=== PATIENT | female | born 1940 | race Caucasian/White ===

== ENCOUNTER 2016-09-14 11:40 | Inpatient (IN) | payer MEDICARE, BC ==
[~2016-09-14] VITALS: Ht 157.5 cm; Wt 54.2 kg
--- NOTE | ~2016-09-14 | CT71 ---
[facility] A Service of [facility] RADIOLOGY TEXT RESULTS PATIENT: ARIANNA PEARSON LOCATION: [facility] 302 : 40 UNIT #: [id number] AGE: [address]: Matias Olivas MD SEX: F ORDER DR: [id number] [facility] [place] [address] [facility]. [place], [place] [address] [id number] MR#: [id number] Acc #: [id number] NAME: ARIANNA PEARSON. : 1940 SEX: F STUDY DATE/TIME: 09/14/2016 14:05 UNIT: OMKAR ROOM: STUDY DESCRIPTION: CT Head Wo Contrast Attending Physician: Saeed Horton M.D. Ordering Physician: Minh Lama M.D. Primary Care Physician: Drew Coles M.D. MEDICAL IMAGING REPORT This report is preliminary unless electronic signature is present EXAM CT head INDICATIONS Confusion. Hypertension. Agitation. Headache. TECHNIQUE CT of the head without contrast. This CT exam was performed with one or more of the following radiation dose reduction techniques: Automatic exposure control, adjustment of mA and/or kV according to patient size, and iterative reconstruction. COMPARISON None available. FINDINGS There is no acute intracranial hemorrhage, mass lesion, or acute infarct. There is some mild atrophy and chronic small vessel changes. Ventricles and basilar cisterns are normal. No extraaxial collections. No acute osseous abnormalities. IMPRESSION No acute intracranial findings. Dictated by... Darío Rodriguez M.D. THIS IS AN ELECTRONICALLY VERIFIED REPORT Darío Rodriguez M.D. at 09/15/2016 8:06 AM [facility]/roni TD: 09/14/2016 22:16 [facility] A Service [facility] RADIOLOGY TEXT RESULTS PATIENT: ARIANNA PEARSON LOCATION: [facility] 302- : 40 UNIT #: [id number] AGE: [address]: Matias Olivas MD SEX: F ORDER DR: CR #: [id number] MEDICAL IMAGING REPORT Page 1 of 1 COPY
--- NOTE | ~2016-09-14 | DS ---
Unit #: [id number] #: [id number] Patient: ARIANNA PEARSON [id number] [address] [place], [place] [address] [id number] I MR#: [id number] NAME: ARIANNA PEARSON. ROOM: 302 Age: 75 Sex: F Admission Date: 09/16/2016 : 1940 Discharge Date: 09/18/2016 Attending Physician: Jalen Ernandez M.D. Primary Care Physician: Drew Coles M.D. DISCHARGE SUMMARY PRIMARY DIAGNOSIS Toxic metabolic encephalopathy. SECONDARY DIAGNOSES 1. Urinary tract infection. 2. Dementia with behavioral disturbance and hallucinations. 3. Systemic lupus erythematosus, actively treated and in remission. 4. History of hypertension. 5. History of depression. 6. Hypothyroidism, well controlled. 7. Dyslipidemia. 8. Chronic constipation. Remote history of COPD per old records. HOSPITAL COURSE The patient was initially placed in observation status for dementia with hallucinations and inability for family to care for the patient. Consultation was made with neurology and psychiatry. The patient was started on Risperdal, low dose. Patient was pleasantly demented here and we really did have much issues with hallucinations or any sort of aggressive behavior as described by the daughter. With good control on Risperdal, we attempted to find placement for the patient. Per the daughter's initial description at admission, the patient had been declining since May although on the day of discharge the patient reports that the patient's hallucinations were much worse in the last one to two weeks. At the patient's initial presentation in the emergency room, a urinalysis was done on September 14 which was negative. The patient was on a bedside commode urinating on the when the nurse practitioner for neurology came in and the patient complained of burning with urination so a second urinalysis was obtained on the evening of the . This one came back with 2+ leukocyte esterase, negative nitrates, 0-2 red blood cells, 5-10 white blood cells, negative bacteria. This meet minimal criteria for urinary tract infection and patient was, at that time, given a diagnosis of urinary tract infection with toxic metabolic encephalopathy and started on Macrobid as she has an allergy to penicillin and cephalosporins. She will need three days of antibiotics. Urine cultures are currently negative at 48 hours for the urinalysis that was obtained on the . No further treatment or followup should be needed for this urinary tract infection. The patient's daughter has very limited understanding of her mother's dementia and hallucinations and the daughter is highly anxious that other reversible causes of the patient's mental issues are being missed. I have examined the patient thoroughly, reviewed everything that has been done to Unit #: [id number] #: [id number] Patient: ARIANNA PEARSON the patient, discussed the case with all the consultants and I have tried to reassure the daughter on multiple occasions that the patient's issues clearly appear to be from her dementia and appear to be doing very well on very mild dose Risperdal. The patient is to be discharge today to [facility] but, if for some reason there is some delay in getting the patient to [facility], it appears she could be safely discharged back home with the daughter until further placement could be obtained. DISCHARGE DISPOSITION To [facility] for her dementia with behavioral disturbance. DISCHARGE ACTIVITY Ad mariangel. She has passed physical evaluation on the day of discharge. DISCHARGE DIET Unrestricted. DISCHARGE FOLLOWUP With PCP in two to six weeks and with neurology in two to eight weeks. DISCHARGE MEDICATIONS Please see discharge Med Rec. It includes: 1. Risperdal 0.25 mg p.o. b.i.d. 2. Macrobid 100 mg p.o. b.i.d. for the next two days. There are no other new medications. Dictated by... Jalen Ernandez M.D. GRACIE/ada TD: 09/18/2016 06:06 JOB #: [id number] DISCHARGE SUMMARY Page 1 of 1 X Jalen Ernandez MD X DISCHARGE SUMMARY
--- NOTE | ~2016-09-14 | CO ---
Unit #: [id number] #: [id number] Patient: ARIANNA PEARSON [id number] [facility] [address] [place], [place] [address] [id number] I MR#: [id number] NAME: ARIANNA PEARSON. ROOM: 302 Age: 75 Sex: F Admission Date: 09/16/2016 : 1940 Attending Physician: Jalen Ernandez M.D. Primary Care Physician: Drew Coles M.D. CONSULTATION REPORT REASON FOR CONSULTATION Followup. DISCUSSION Ms. Arianna Pearson is a 75-year-old white female, seen in room 302 bed 1 on 09/17/2016 at [facility]. The patient dressed casually in hospital attire, lying comfortably in bed. Able to answer questions appropriately. The patient still having problem with confusion and problem with memory, but more coherent and able to answer questions. The patient denied any side effects from medication. Denied any other complaints. Denied any thoughts of harming self or others. Vital signs; temperature 97.7, pulse 68, respirations 18, blood pressure 157/77, oxygen saturation 99%. The patient did not show any side effects from medication. The patient started on Macrobid 100 mg b.i.d., currently on Lopressor and Risperdal 0.25 mg b.i.d., tolerating medication fairly well. REVIEW OF SYSTEMS Complete review of systems is unremarkable. MENTAL STATUS EXAMINATION Vital signs; please see above. General appearance; the patient dressed in hospital attire. Attention span and concentration, fair to poor. Speech, somewhat rambling. Oriented in place and person. Mood and affect, labile. Thought process, circumstantial. Thought content, denied any thoughts of harming self or others, but somewhat guarded, paranoia, but denied any suicidal or homicidal ideation. Recent and remote memory, poor. Language, fair. Fund of knowledge, poor. Insight and judgment, fair to slightly impaired. DIAGNOSES Psychiatric: Major neurocognitive disorder secondary to Alzheimer disease with behavioral disturbances, F02.81. ASSESSMENT AND PLAN 1. Supportive psychotherapy and psychoeducation provided to the patient, but the patient unable to comprehend much at this time. 2. Advised to continue with current combination of medication at this time. If needed, consider further adjustment of medication. The social critical care unit nurse is currently working on appropriate placement. Please feel free to call if any questions, telephone [phone]. Dictated by... Nolberto Alcala M.D. Unit #: [id number] #: [id number] Patient: ARIANNA PEARSON MI/dayanl TD: 09/17/2016 17:43 JOB #: [id number] CONSULTATION REPORT Page 1 of 1 X Nolberto Alcala MD X CONSULTATION REPORT
--- NOTE | ~2016-09-14 | CO ---
Unit #: [id number] #: [id number] Patient: ARIANNA PEARSON [id number] [address] [address] [id number] I MR#: [id number] NAME: ARIANNA PEARSON. ROOM: 302 Age: 75 Sex: F Admission Date: 09/16/2016 : 1940 Attending Physician: Jalen Ernandez M.D. Primary Care Physician: Drew Coles M.D. Consultation Date: 09/16/2016 CONSULTATION REPORT REASON FOR CONSULTATION Followup. DISCUSSION Ms. Arianna Pearson is a 75-year-old white female, seen in room 302, bed 1 on 09/16/2016. The patient dressed in hospital attire, lying comfortably in bed, seem increasingly confused. The patient needing redirection, but unable to give any coherent answer. The patient did not show any agitation. Compliant with medication. No side effects from medication. I talked to the patient's daughter in length and explained about her diagnosis and treatment. The patient's vital signs; temperature 98.1, heart rate 74, respiratory rate 16, blood pressure 150/77, oxygen saturation 99%. MENTAL STATUS EXAMINATION General appearance; the patient dressed in hospital attire, lying comfortably in bed. Attention span and concentration, poor. Speech, minimal. Orientation, unable to assess. Mood and affect, labile. Thought process, disorganized. Thought content, guarded and paranoid. Recent and remote memory, poor. Language, poor. Fund of knowledge, impaired. Insight and judgment, impaired. DIAGNOSES Psychiatric: Delirium, F05; major neurocognitive disorder secondary to Alzheimer disease with behavior disturbances, F02.81. ASSESSMENT/PLAN 1. Supportive psychotherapy and psychoeducation provided to the patient and the patient's daughter, but the patient unable to comprehend much. 2. Educated about benefits and side effects of medication and course and prognosis of illness to the patient's daughter and explained about the test. I advised to continue with current medication Risperdal 0.25 mg b.i.d. If needed, consider further adjustment of medication. We will continue to follow. Please feel free to call if any questions, telephone #[phone]. Dictated by... Nolberto Alcala M.D. [facility]/dev TD: 09/17/2016 00:57 Unit #: [id number] #: [id number] Patient: MICHELARIANNA Ignacio JOB #: [id number] CONSULTATION REPORT Page 1 of 1 X Nolberto Alcala MD X CONSULTATION REPORT
--- NOTE | ~2016-09-14 | CO ---
Unit #: [id number] #: [id number] Patient: ARIANNA PEARSON [id number] [facility] [address] [facility]. [place], [place] [address] [id number] I MR#: [id number] NAME: ARIANNA PEARSON. ROOM: 302 Age: 75 Sex: F Admission Date: 09/14/2016 : 1940 Attending Physician: Jalen Ernandez M.D. Primary Care Physician: Drew Coles M.D. CONSULTATION REPORT REASON FOR CONSULTATION Problem with memory, hallucination, agitation. HISTORY OF PRESENT ILLNESS Ms. Arianna Pearson is a 75-year-old white female, seen in room 302, bed 1 on 09/15/2016 at [facility]. The patient was admitted due to change in mental status, hallucination, advanced dementia, not able to take care of herself. The patient has a history of SLE, hypertension, hypothyroidism, depression. The patient was unable to give any reliable information, confused, guarded. No aggression. Attending to internal stimuli. Family unable to take care of her. They recommended a long-term nursing care facility. The patient seems to be attending to internal stimuli. No agitation. PAST PSYCHIATRIC HISTORY Remarkable for history of dementia and depression. No history of any inpatient treatment known at this time. The patient is currently on doxepin and Aricept. MEDICAL HISTORY History of hypertension, dementia, SLE, depression, hypothyroidism, dyslipidemia, chronic constipation, remote history of COPD. MEDICATIONS The patient is on simvastatin 40 mg daily, aspirin 81 mg daily, multivitamin 1 tablet daily, MiraLax 17 g p.r.n., Cozaar 100 mg daily, doxepin 50 mg b.i.d., Toprol 50 mg b.i.d., levothyroxine 25 mcg daily, Plaquenil 200 mg daily, Aricept 5 mg daily. FAMILY HISTORY AND SOCIAL HISTORY The patient has a good support system, but lives by herself. No history of abuse. No history of any substance abuse. REVIEW OF SYSTEMS Complete review of systems is unremarkable at this time. MENTAL STATUS EXAMINATION Vital signs; temperature 97.3, heart rate 58, respiratory rate 16, blood pressure 144/62, oxygen saturation 100%. General appearance; the patient dressed casually, lying comfortably in bed. Attention span and concentration, poor. Speech, rambling. Orientation in self. Mood and affect, labile. Thought process, circumstantial. Thought content; guarded, paranoid, attending to internal stimuli. Denied any thoughts of harming self or others. Recent and remote memory, poor. Language, fair. Unit #: [id number] #: [id number] Patient: ARIANNA PEARSON Fund of knowledge, poor. Insight and judgment, impaired. 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 Secondary diagnosis: Deferred. Medical diagnosis: Please refer to H and P. Stressors: Psychosocial stressor. ASSESSMENT/PLAN 1. Supportive psychotherapy and psychoeducation provided to the patient, but the patient unable to comprehend much. 2. Advised to continue with current medication with a plan to add Risperdal 0.25 mg b.i.d. 3. Monitor for side effects. If needed, consider further adjustment of medication. 4. We will work with the skin care instructor for appropriate placement for the patient. Please feel free to call if any questions, telephone #[phone]. Dictated by... Ariadna Bautista/dev TD: 09/16/2016 00:09 JOB #: [id number] CONSULTATION REPORT Page 1 of 1 X Nolberto Alcala MD X CONSULTATION REPORT
--- NOTE | ~2016-09-14 | EKG ---
PATIENT: ARIANNA PEARSON UNIT #: [id number] Ventricular Rate: 90 BPM Atrial Rate: 90 BPM P-R Interval: 180 ms QRS Duration: 140 ms Q-T Interval: 436 ms QTC Calculation(Bezet): 533 ms P Medina: 41 degrees Calculated R Medina: -46 degrees Calculated T Medina: 4 degrees Diagnosis Line: Normal sinus rhythm Diagnosis Line: Right bundle branch block Diagnosis Line: Left anterior fascicular block Diagnosis Line: Bifascicular block Diagnosis Line: Voltage criteria for left ventricular hypertrophy Diagnosis Line: Cannot rule out Septal infarct , age undetermined Diagnosis Line: Abnormal ECG Diagnosis Line: No previous ECGs available Diagnosis Line: Confirmed by TYREE GUTIERREZ MD ([id number]) on Diagnosis Line: 09/15/2016 12:21:06 PM INTERPRETING MD: FLY
--- NOTE | ~2016-09-14 | HP ---
Unit #: [id number] #: [id number] Patient: ARIANNA PEARSON [id number] [address] [place], [place] [address] [id number] I MR#: [id number] NAME: ARIANNA PEARSON. ROOM: 302 Age: 75 Sex: F Admission Date: 09/14/2016 : 1940 Attending Physician: Matias Olivas M.D. Primary Care Physician: Drew Coles M.D. HISTORY AND PHYSICAL CHIEF COMPLAINT Unstable mental status, hallucination, advanced dementia, not able to take care of herself at home. DISCUSSION This is a 75-year-old female with history of hypertension, dementia, SLE, depression, hypothyroid, dyslipidemia, chronic constipation, who currently lives alone at home. Her daughter is available at bedside, as per her that since May she had been declining and is more confused and not able to take care of herself. The last couple of days she has been seeing that she has been having some orange stuff on the floor and also she sees ants on the [place]zpatrick, more confused and the family brought her in the emergency room for workup and evaluation, and especially for placement. Her workup in the emergency room was so far unremarkable except the D-dimer is mildly elevated but she does not have any sign of DVT or pulmonary embolism. She was also assessed by [facility] for the admission and [facility] did not accept the patient. They recommend a long-term nursing care placement and patient being eventually admitted especially for placement and either discussed with the daughter who was available at bedside. She the patient needs to see also neurology consult and psychiatry evaluation. She is unable to give me any history. She is even not answering to my questions, just looking and not answering the question at this time. PAST MEDICAL HISTORY 1. As per old record, history of hypertension. 2. History of dementia. 3. History of SLE affecting the skin. 4. History of depression. 5. Hypothyroid. 6. Dyslipidemia. 7. Chronic constipation. 8. Remote history of COPD as per old record. PAST SURGICAL HISTORY 1. Cholecystectomy. 2. Total abdominal hysterectomy. 3. Breast biopsies. 4. Colonoscopy. 5. History of abdominal hernia repair. 6. History of bladder mesh. SOCIAL HISTORY She used to smoke one pack per day but she quit many years ago. She Unit #: [id number] #: [id number] Patient: ARIANNA PEARSON seldom used alcohol. She lives alone at this time. FAMILY HISTORY Notable for hypertension, diabetes, coronary artery in the family. ALLERGIES She is allergic to Trazodone, sulfa, ramipril, paroxetine. MEDICATION FROM HOME 1. Simvastatin 40 mg daily. 2. Aspirin 81 mg daily. 3. Multivitamin 1 tablet daily. 4. MiraLAX 17 g p.r.n. 5. Cozaar 100 mg daily. 6. Doxepin 25 mg 2 tablet b.i.d. 7. Toprol 50 mg b.i.d. 8. Levothyroxine 25 mcg daily. 9. Plaquenil 200 mg p.o. daily. 10. Aricept 5 mg at bedtime. REVIEW OF SYSTEMS Unobtainable from the patient at this time. PHYSICAL EXAMINATION GENERAL: Elderly female lying in the bed comfortable, currently not in any distress. She is alert, awake, oriented x0 at this time. VITAL SIGNS: Current vitals are following. Temp is 97.8, heart rate 96, respiratory rate 16, blood pressure 152/76, oxygen 100%. HEENT: Pupils are equal, react to light and accommodation. Head is normocephalic, atraumatic. NECK: Supple. No JVD. HEART: S1 and S2. Regular rate and rhythm. LUNGS: Clear to auscultation. Bilateral rhonchi. No wheezing. ABDOMEN: Soft, nontender, nondistended. Bowel sounds positive. EXTREMITIES: To inspection normal. No cyanosis, no clubbing, no edema. NEUROLOGIC: She is moving all extremities. DIAGNOSTIC STUDIES LABORATORY STUDIES: Laboratory workup is following today and showed no acute abnormality. D-dimer is 335, glucose 54. Chemistry - sodium 134, potassium 4, chloride 101, glucose 82, BUN 15, creatinine 1.2. LFT within normal limits. White count 6.4, hemoglobin 13, hematocrit 41, platelet 239. UA negative. IMAGING STUDIES: CT head is negative. Chest x-ray negative. ASSESSMENT AND PLAN 1. Dementia with hallucination and deliriums. Daughter requested long-term nursing care placement. Will admit the patient and ask business continuity planner to evaluate and also daughter asked me to have a neurology and psychiatry evaluation while in the hospital. Will ask psychiatry and neurology to evaluate for hallucination and delirium with advanced dementia. 2. Hypertension. 3. Mildly abnormal D-dimer. I do not see any sign or symptoms of PE and DVT. Unit #: [id number] #: [id number] Patient: ARIANNA PEARSON 4. History of SLE. 5. History of depression. 6. Hypothyroidism. 7. Dyslipidemia. 8. Chronic constipation. 9. DVT prophylaxis, will place the patient on Lovenox. Dictated by Ariadna Brock/simi TD: 09/15/2016 05:04 JOB #: [id number] HISTORY AND PHYSICAL Page 1 of 1 X X HISTORY AND PHYSICAL
--- NOTE | ~2016-09-14 | CR72 ---
[facility] A Service of [facility] RADIOLOGY TEXT RESULTS PATIENT: ARIANNA PEARSON LOCATION: [facility] 302-01 : 40 UNIT #: [id number] AGE: [address]: Matias Olivas MD SEX: F ORDER DR: [id number] [facility] [address] [facility]. [place], [place] [address] [id number] E MR#: [id number] Acc #: [id number] NAME: ARIANNA PEARSON. : 1940 SEX: F STUDY DATE/TIME: 09/14/2016 13:32 UNIT: OMKAR ROOM: STUDY DESCRIPTION: CR Chest Single View Portable Attending Physician: Saeed Horton M.D. Ordering Physician: Minh Lama M.D. Primary Care Physician: Drew Coles M.D. MEDICAL IMAGING REPORT This report is preliminary unless electronic signature is present EXAM Single view chest INDICATIONS Altered mental status. Cough and congestion. FINDINGS Single portable AP view of the chest compared to 10/13/2008. The patient is rotated to the right. Heart and mediastinal contours are unchanged when taking into account the rotation. No focal airspace opacity. No pneumothorax or pleural effusion. IMPRESSION Rotated exam, however, no acute findings are suspected. Dictated by... Darío Rodriguez M.D. THIS IS AN ELECTRONICALLY VERIFIED REPORT Darío Rodriguez M.D. at 09/15/2016 8:06 AM C/roni TD: 09/14/2016 21:49 JOB #: [id number] MEDICAL IMAGING REPORT Page 1 of 1 COPY
--- NOTE | ~2016-09-14 | CO ---
Unit #: [id number] #: [id number] Patient: ARIANNA PEARSNO [id number] [facility] [address]. [place], [place] [address] [id number] MR#: [id number] NAME: ARIANNA PEARSON. ROOM: 302 Age: 75 Sex: F Admission Date: 09/14/2016 : 1940 Attending Physician: Jalen Ernandez M.D. Primary Care Physician: Drew Coles M.D. Consultation Date: 09/15/2016 CONSULTATION REPORT PRIMARY CARE PHYSICIAN Drew Coles M.D. REASON FOR CONSULT Dementia with hallucinations. PATIENT IDENTIFICATION This is a 75-year-old, female, evaluated in room 302 at [facility]. SOURCE OF INFORMATION Obtained essentially from the medical record. The patient is a poor historian and is confused. HISTORY OF PRESENT ILLNESS This is a 75-year-old, female with a past medical history of dementia, hypertension, SLE, depression, hypothyroidism, and hyperlipidemia, who presents to [facility] with family report of worsening confusion, combativeness and agitation over the past week, but has had progressive decline since May, has become more confused and is not able to take care of herself. Her daughter brought the patient in and is requesting placement. Apparently over the last few days, she has been seeing things, having visual hallucinations, seeing ants on the fitzpatrick. She has CT of the head without contrast in the ER that was negative for any acute intracranial findings. Her workup in the ER did show an elevated D-dimer, but is otherwise unremarkable. Clinically, she is not showing any signs of DVT or PE. She was assessed by multiple places for psychiatric admission, but was not accepted and the recommendation is for long-term nursing care placement. Neurology and Psychiatry were asked to evaluate the patient further. The patient denies any current complaints with the exception of burning with urination. She actually had just finished using the restroom when I came into see her was complaining of burning and pain with using the restroom. She otherwise is confused and is unable to contribute to meaningful history. REVIEW OF SYSTEMS There are no family at the bedside. There has been no report of any headache, fever, chills, change in weight, or medications and she could not report of any stroke symptoms or seizure activity. Again, the patient is confused. PAST MEDICAL HISTORY 1. Dementia. 2. Hypertension. Unit #: [id number] #: [id number] Patient: ARIANNA PEARSON 3. SLE affecting the skin. 4. Depression. 5. Hypothyroidism. 6. Hyperlipidemia. 7. Chronic constipation. 8. COPD. 9. Cholecystectomy. 10. Total abdominal hysterectomy. 11. Breast biopsies. 12. Colonoscopy. 13. Abdominal hernia repair. 14. Bladder mesh. FAMILY HISTORY According to the medical record, positive for hypertension, diabetes and CAD, though noncontributory given her presenting condition. SOCIAL HISTORY The patient has a history of tobacco use in the past, but apparently quit many years ago per medical record. No known alcohol abuse or illicit drug use. ALLERGIES Trazodone, sulfa, ramipril, paroxetine. HOME MEDICATIONS As per med rec including Cozaar, doxepin, Toprol-XL, levothyroxine sodium, Plaquenil, simvastatin, aspirin, multivitamin, MiraLAX, simethicone, Aricept. REVIEW OF SYSTEMS Unable to obtain a full review of systems from the patient. She denies any pain other than burning with urination. PHYSICAL EXAMINATION VITAL SIGNS: Temperature 97.7, she has been afebrile, pulse 72, respirations 18, blood pressure 147/62, blood pressure in the ER on arrival was 152/76, oxygen saturation 100%, height 5 feet 2 inches, weight 118 pounds, BMI 21. NEUROLOGIC: The patient is awake. She is alert. She is oriented to person. She knows she is at the hospital, but she is unable to tell me which hospital. She is not oriented to time. She cannot tell me the day of the week, the month or the year. She has short-term memory recall impairment. She has pressured speech. She can name and identify and has no right or left confusion. She has no finger agnosia. She is not aphasic at this time. She can follow commands, but has difficulty with 2 and 3-step commands. Cranial nerve exam, she demonstrates full traylor of vision. Eyes are conjugate without ptosis or nystagmus. Extraocular movements are intact. Sensation of face and scalp is intact. Strength of the muscles of facial expression is intact. Hearing is intact to voice. Tongue is midline. Unable to fully visualize uvula and palate. Head turning is unremarkable. Shoulder shrug is unremarkable. Neck is supple. Motor exam, she demonstrates normal tone, normal strength, decreased bulk. She moves all extremities equally and spontaneously. She can ambulate in the room without difficulty and without assistance. Romberg deferred. Unit #: [id number] #: [id number] Patient: ARIANNA PEARSON M Reflexes, unable to elicit. Toes are equivocal. Coordination unremarkable. DIAGNOSTIC STUDIES IMAGING STUDIES: CT of the head without contrast on 09/14/2016; impression per Radiology report, no acute intracranial findings. EKG shows normal sinus rhythm, right bundle branch block with left anterior fascicular block. Chest x-ray on 09/14/2016; impression per Radiology report, rotated exam, however, no acute findings suspected. LABORATORY RESULTS: Initial urinalysis unremarkable. CBC unremarkable for any abnormal white cells, hemoglobin, hematocrit or abnormal platelet count. BMP unremarkable other than a sodium of 134, estimated GFR is 44.2, creatinine is 1.2, glucose was 54 a couple of hours after arrival, but on initial BMP, it was 82. TSH 0.96. IMPRESSION 1. Dementia with behavioral disturbance. 2. Complaints of pain and burning with urination. We will repeat urinalysis. 3. Hypertension. 4. Systemic lupus erythematosus. PLAN We will observe for now and we will follow closely. We will discuss with the daughter as well. I discussed the case with Dr. Acuna and he agrees to the above. We will check B12, folate, urinalysis, C and S. the family is requesting placement. Apparently, the patient does live at home and is no longer able to take care of herself. We will check for any metabolic disturbances that could be exacerbating her symptoms. Nothing at this time to suggest acute stroke, seizure or DATA PROCESSING MANAGER infection or acute primary neurologic etiology that is treatable at this time. However, if any further information is obtained, we will consider further workup. The patient is unable to contribute meaningfully to review of systems. Further recommendations to be made pending workup and further clinical course and discussion with family. We will follow along with you. We thank you very much for allowing us to assist in care of this patient. Dictated by... Inocente SantanaP.Urvashi. for Ariadna Aldana/dev TD: 09/16/2016 06:26 JOB #: [id number] CONSULTATION REPORT Page 1 of 1 X Abena Smith APRN CONSULTATION REPORT
[~2016-09-14 11:40] MED LIST: AMBIEN PO; ASPIRIN PO; ASPIRIN81 M2 PO; BACITRACIN15 GM TP; BACTRIM DS TABL1 TA1 PO; BENICAR HCT 40-1 TAB PO; BENICAR PO; CIPRO250 MG PO; COZAAR100 MG PO; DOXEPIN HCL25 MG PO; DOXEPIN PO; IRON TABLETS1 TAB PO; LEVOTHYROXINE25 MC1 PO; LOPRESSOR PO; MUPIROCIN15 GM TP; PLAQUENIL200 MG PO; PROTONIX PO; SIMVASTATIN40 MG PO; SYNTHROID PO; TOPROL XL PO; TOPROL XL50 MG PO; VICODIN 5/500 T1 TAB PO; VITAMIN D 22000 UNIT PO; ZOCOR PO
[2016-09-14 14:28] LABS: URINE SOURCE CATH
[2016-09-14 14:33] LABS: URINE APPEARANCE CLEAR; URINE BILIRUBIN NEG (NEG); URINE BLOOD NEG (NEG); URINE COLOR YELLOW; URINE GLUCOSE NEG (NEG); URINE KETONE NEG (NEG); URINE LEUKOCYTE ESTERASE NEG (NEG); URINE NITRATE NEG (NEG); URINE PROTEIN NEG (NEG); URINE UROBILINOGEN 0.2 MG/DL (NEG)
[2016-09-14 14:35] LABS: BASOPHIL% 0.2 % (0-2.5); EOSINOPHIL% 0.7 % (0.0-7.0); HEMATOCRIT 41.3 % (35.0-45.0); HEMOGLOBIN 13.5 gm/dL (12.0-16.0); LYMPHOCYTE# 0.9 X10e3 (1.0-3.5); LYMPHOCYTE% 13.8 % (17.0-45.0); MEAN CELL VOLUME 92.5 FL (83-96); MEAN CORPUSCULAR HEMOGLOBIN 30.4 PG (28-34); MEAN CORPUSCULAR HGB CONC 32.8 g/dL (30-36); MEAN PLATELET VOLUME 7.8 FL (6.5-11.5); MONOCYTE# 0.6 X10e3 (0-1.0); MONOCYTE% 9.6 % (3.0-12.0); NEUTROPHIL# 4.8 X10e3 (1.5-7.1); NEUTROPHIL% 75.7 % (40-75); PLATELET COUNT 239 X10e3 (140-420); RED BLOOD COUNT 4.46 X10e (3.90-5.30); RED CELL DISTRIBUTION WIDTH 14.2 % (11.0-15.5); WHITE BLOOD COUNT 6.4 X10e3 (4.0-10.5)
[2016-09-14 14:37] LABS: CULTURE INDICATED? NO
[2016-09-14 14:49] LABS: DIFF IND NO
[2016-09-14 15:03] LABS: ALBUMIN SERUM 4.3 g/dL (3.5-5.0); BILIRUBIN, DIRECT 0.1 mg/dL (0.0-0.2); BILIRUBIN,INDIRECT 0.8 mg/dL (0.0-0.9); BILIRUBIN,TOTAL 0.9 mg/dL (0.2-2.0); BUN/CREATININE RATIO 12.5; CALCIUM SERUM 9.6 mg/dL (8.4-10.2); CREATININE SERUM 1.2 mg/dL (0.6-1.4); GLOM FILT RATE Estimated 44.2 mL/min (>60); PROTEIN TOTAL SERUM 7.3 g/dL (6.0-8.3)
[2016-09-14] MEDS ORDERED: MULTIVITAMINS1 EAC3 PO (19:12)
[2016-09-14] MEDS ORDERED: MIRALAX17 GM DOB (19:12)
[2016-09-14] MEDS ORDERED: GAS-X125 M1 PO (19:13)
[2016-09-14] MEDS ORDERED: ARICEPT5 M1 PO (19:15)
[2016-09-15 12:16] LABS: FOLATE (FOLIC ACID) >23.2 ng/mL (>5.8)
[2016-09-16 00:06] LABS: URINE APPEARANCE CLEAR; URINE BILIRUBIN NEG (NEG); URINE BLOOD NEG (NEG); URINE COLOR YELLOW; URINE GLUCOSE NEG (NEG); URINE KETONE NEG (NEG); URINE LEUKOCYTE ESTERASE 2+ (NEG); URINE NITRATE NEG (NEG); URINE PROTEIN NEG (NEG); URINE SPECIFIC GRAVITY 1.006 (1.003-1.035); URINE UROBILINOGEN 0.2 MG/DL (NEG)
[2016-09-16 00:08] LABS: CULTURE INDICATED? YES; URBCS1 AUWI 0-2 /[HPF] (0-2); URINE BACTERIA AUWI NEG (NEGATIVE); URINE SQUAMOUS EPITHELIAL CELL NONE SEEN /[HPF]
[2016-09-17 05:27] LABS: HEMATOCRIT 38.2 % (35.0-45.0); HEMOGLOBIN 12.7 gm/dL (12.0-16.0); MEAN CELL VOLUME 92.3 FL (83-96); MEAN CORPUSCULAR HEMOGLOBIN 30.7 PG (28-34); MEAN CORPUSCULAR HGB CONC 33.2 g/dL (30-36); MEAN PLATELET VOLUME 8.8 FL (6.5-11.5); RED BLOOD COUNT 4.14 X10e (3.90-5.30); RED CELL DISTRIBUTION WIDTH 13.7 % (11.0-15.5); WHITE BLOOD COUNT 7.3 X10e3 (4.0-10.5)
[2016-09-17 05:47] LABS: CALCIUM SERUM 8.7 mg/dL (8.4-10.2); CREATININE SERUM 0.9 mg/dL (0.6-1.4); GLOM FILT RATE Estimated 62.6 mL/min (>60); POTASSIUM 4.4 mmol/L (3.5-5.1)
== END 2016-09-18 01:30 | DRG 92 ==
LOC: CED 11:40 → C3A PCU 22:35 → CEDOF 22:35 → CED 22:35 → CEDOF 22:49 → CED 22:49 → C3A PCU 09-15 00:09 → CEDOF 09-15 00:09 → C3A PCU 09-15 09:37 → CEDOF 09-16 15:23 → C3A PCU 09-18 01:30
PROVIDERS: Emergency Medicine; Internal Medicine; Nurse Practitioner
DX: G92 Toxic encephalopathy (principal); N39.0 Urinary tract infection, site not specified; G30.9 Alzheimer's disease, unspecified; F05 Delirium due to known physiological condition; F02.81 Dementia in other diseases classified elsewhere, unspecified severity, with behavioral disturbance; I10 Essential (primary) hypertension; F32.9 Major depressive disorder, single episode, unspecified; E78.5 Hyperlipidemia, unspecified; E03.9 Hypothyroidism, unspecified; K59.09 Other constipation; Z90.49 Acquired absence of other specified parts of digestive tract; Z90.710 Acquired absence of both cervix and uterus; Z87.891 Personal history of nicotine dependence; Z88.2 Allergy status to sulfonamides; Z88.8 Allergy status to other drugs, medicaments and biological substances; Z79.82 Long term (current) use of aspirin; Z83.3 Family history of diabetes mellitus; Z82.49 Family history of ischemic heart disease and other diseases of the circulatory system
CPT/HCPCS: 36415; 70450; 71010; 80048; 80076; 81003; 82607; 82746; 82947; 84443; 85025; 85027; 85379; 87086; 93005; 97161; 97165; 99285; G8978-GP; G8979-GP; G8980-GP; G8987-GO; G8988-GO; G8989-GO; J1650

== ENCOUNTER 2016-09-18 19:27 | Emergency (ER) | payer MEDICARE, BC ==
--- NOTE | ~2016-09-18 | CR2 ---
[facility] A Service of [facility] RADIOLOGY TEXT RESULTS PATIENT: ARIANNA PEARSON LOCATION: [facility] : 40 UNIT #: [id number] AGE: [address]: Saeed Horton MD SEX: F ORDER DR: [id number] [facility] [address] [place], [place] [address] [id number] MR#: [id number] Acc #: [id number] NAME: ARIANNA PEARSON. : 1940 SEX: F STUDY DATE/TIME: 09/18/2016 20:42 UNIT: [facility] ROOM: STUDY DESCRIPTION: CR Abdomen Acute Series Attending Physician: Saeed Horton M.D. Ordering Physician: Saeed Horton M.D. Primary Care Physician: Drew Coles M.D. MEDICAL IMAGING REPORT This report is preliminary unless electronic signature is present EXAM Acute abdomen series HISTORY Abdomen pain, nausea and vomiting after fall today. FINDINGS Flat and upright views of the abdomen and upright view of the chest demonstrate the bowel gas pattern is normal. Moderate amount of stool in the right colon. Prior abdominal wall hernia repair and surgical clips in the right upper quadrant. Mzpo-iq-mdcaryzz multilevel degenerative changes in the lumbar spine. No free air. Cardiac size and pulmonary vascularity are within normal limits. No airspace infiltrates or effusions. IMPRESSION No acute findings. No bowel obstruction. No active disease in the chest. Dictated by... Juventino Hawk M.D. THIS IS AN ELECTRONICALLY VERIFIED REPORT Juventino Hawk M.D. at 09/19/2016 11:44 PM DFL/giuseppe TD: 09/19/2016 04:55 JOB #: [id number] MEDICAL IMAGING REPORT Page 1 of 1 COPY
--- NOTE | ~2016-09-18 | CT71 ---
[facility] A Service of [facility] RADIOLOGY TEXT RESULTS PATIENT: ARIANNA PEARSON LOCATION: [facility] : 40 UNIT #: [id number] AGE: [address]: Saeed Horton MD SEX: F ORDER DR: [id number] [facility] [address] [place] [address]. [place], [place] [address] [id number] MR#: [id number] Acc #: [id number] NAME: ARIANNA PEARSON. : 1940 SEX: F STUDY DATE/TIME: 09/18/2016 21:49 UNIT: [facility] ROOM: STUDY DESCRIPTION: CT Head Wo Contrast Attending Physician: Saeed Horton M.D. Ordering Physician: Saeed Horton M.D. Primary Care Physician: Drew Coles M.D. MEDICAL IMAGING REPORT This report is preliminary unless electronic signature is present EXAM CT head without contrast, 09/18/2016. HISTORY 75-year-old female with seizure today. COMPARISON CT head, 09/14/2016. TECHNIQUE Routine unenhanced axial images performed through the brain. This CT exam was performed with one or more of the following radiation dose reduction techniques: automatic exposure control, adjustment of mA and/or kV according to patient size, and iterative reconstruction. FINDINGS No hemorrhage, acute infarction, mass lesion, or abnormal extraaxial fluid collection. No midline shift or focal mass effect. Ventricular system normal in size and configuration. Mild chronic small vessel disease. No acute bony abnormality. Visualized paranasal sinuses and mastoid air cells are clear. IMPRESSION No acute intracranial abnormality. Dictated by... Gui Low M.D. THIS IS AN ELECTRONICALLY VERIFIED REPORT Gui Low M.D. at 09/19/2016 10:05 AM DEENA/jessi TD: 09/19/2016 05:28 [facility] A Service of [facility] RADIOLOGY TEXT RESULTS PATIENT: ARIANNA PEARSON LOCATION: [facility] : 40 UNIT #: [id number] AGE: [address]: Saeed Horton MD SEX: F ORDER DR: JOB #: [id number] MEDICAL IMAGING REPORT Page 1 of 1 COPY
[~2016-09-18 19:27] MED LIST changes: +ARICEPT5 M1 PO; +GAS-X125 M1 PO; +MIRALAX17 GM DOB; +MULTIVITAMINS1 EAC3 PO
[2016-09-18 20:46] LABS: BASOPHIL% 0.4 % (0-2.5); EOSINOPHIL% 0.4 % (0.0-7.0); HEMATOCRIT 40.3 % (35.0-45.0); HEMOGLOBIN 13.5 gm/dL (12.0-16.0); LYMPHOCYTE# 0.4 X10e3 (1.0-3.5); MEAN CORPUSCULAR HEMOGLOBIN 30.7 PG (28-34); MEAN CORPUSCULAR HGB CONC 33.3 g/dL (30-36); MEAN PLATELET VOLUME 8.3 FL (6.5-11.5); MONOCYTE# 0.6 X10e3 (0-1.0); MONOCYTE% 6.6 % (3.0-12.0); NEUTROPHIL# 8.1 X10e3 (1.5-7.1); NEUTROPHIL% 88.6 % (40-75); PLATELET COUNT 220 X10e3 (140-420); RED BLOOD COUNT 4.38 X10e (3.90-5.30); WHITE BLOOD COUNT 9.1 X10e3 (4.0-10.5)
[2016-09-18 20:49] LABS: DIFF IND NO
[2016-09-18 21:11] LABS: ALBUMIN SERUM 3.8 g/dL (3.5-5.0); BILIRUBIN, DIRECT 0.1 mg/dL (0.0-0.2); BILIRUBIN,INDIRECT 0.7 mg/dL (0.0-0.9); BILIRUBIN,TOTAL 0.8 mg/dL (0.2-2.0); CALCIUM SERUM 9.1 mg/dL (8.4-10.2); GLOM FILT RATE Estimated 55.1 mL/min (>60); POTASSIUM 3.9 mmol/L (3.5-5.1); PROTEIN TOTAL SERUM 6.7 g/dL (6.0-8.3)
[2016-09-18 21:48] LABS: URINE SOURCE CLEAN CATCH
[2016-09-18 21:56] LABS: URINE APPEARANCE CLEAR; URINE BILIRUBIN NEG (NEG); URINE BLOOD NEG (NEG); URINE COLOR YELLOW; URINE GLUCOSE NEG (NEG); URINE KETONE TRACE (NEG); URINE LEUKOCYTE ESTERASE TRACE (NEG); URINE NITRATE NEG (NEG); URINE PROTEIN NEG (NEG); URINE SPECIFIC GRAVITY 1.017 (1.003-1.035); URINE UROBILINOGEN 0.2 MG/DL (NEG)
[2016-09-18 22:02] LABS: CULTURE INDICATED? YES; URBCS1 AUWI 0-2 /[HPF] (0-2); URINE BACTERIA AUWI 1+ (NEGATIVE); URINE SQUAMOUS EPITHELIAL CELL NONE SEEN /[HPF]; UWBCS1 AUWI 0-2 (0-5)
== END 2016-09-18 23:45 | disposition home or self-care (01) ==
LOC: CED 19:27
PROVIDERS: Emergency Medicine
DX: F03.90 Unspecified dementia, unspecified severity, without behavioral disturbance, psychotic disturbance, mood disturbance, and anxiety (principal); R53.1 Weakness; I10 Essential (primary) hypertension; Z88.1 Allergy status to other antibiotic agents; Z88.2 Allergy status to sulfonamides; Z88.8 Allergy status to other drugs, medicaments and biological substances; Z79.899 Other long term (current) drug therapy; Z79.82 Long term (current) use of aspirin
CPT/HCPCS: 36415; 51701; 70450; 74022; 80048; 80076; 81003; 83690; 85025; 87086; 99285